=== PATIENT | female | born 1960 | race African-American/Black ===

== ENCOUNTER 2023-03-27 10:35 | Emergency (ER) | payer OTHER ==
[~2023-03-27] VITALS: Ht 170.2 cm; Wt 64.9 kg
[2023-03-27 10:39] VITALS: BP 139/79
--- NOTE | 2023-03-27 11:33 | NUR ---
MD ORTIZ AT BEDSIDE FOR EVALUATION
[2023-03-27] MEDS ORDERED: predniSONE 20 MG TAB PO ONE (11:40)
[2023-03-27] MEDS ORDERED: PRED20TA5 PO (11:45)
[2023-03-27] MEDS ORDERED: FAMOTIDINE 20 MG TAB PO ONE (11:45)
[2023-03-27] MEDS ORDERED: BACTO TP (11:45)
--- NOTE | 2023-03-27 12:07 | NUR ---
Patient discharged with v/s stable. Written and verbal after care instructions FOR HIVES AND CELLULITIS given and explained. Patient alert, oriented and verbalized understanding of instructions. Ambulatory with steady gait. All questions addressed prior to discharge. ID band removed. Patient advised to follow up with PMD. Rx of PRENISONE AND MUPIROCIN given. Opportunity to ask questions provided and answered.
--- NOTE | 2023-03-27 12:08 | NUR ---
The patient's care was reviewed and supervised by [place] [facility], RN.
== END 2023-03-27 12:07 | disposition home or self-care (01) ==
LOC: MED 10:35
DX: L50.9 Urticaria, unspecified (principal); L03.116 Cellulitis of left lower limb; Z79.899 Other long term (current) drug therapy
CPT/HCPCS: 99283; J7512